=== PATIENT | male | born 1980 | race Caucasian/White ===

== ENCOUNTER 2022-12-16 16:23 | Emergency (ER) | payer OTHER ==
[~2022-12-16] VITALS: Ht 175.2 cm; Wt 104.3 kg
[2022-12-16] MEDS ORDERED: MEDROL DOSEPAK4 MG PO (18:39)
== END 2022-12-16 19:06 | disposition home or self-care (01) ==
LOC: ED 16:23
DX: T78.49XA Other allergy, initial encounter (principal); F17.200 Nicotine dependence, unspecified, uncomplicated; X58.XXXA Exposure to other specified factors, initial encounter

== ENCOUNTER 2023-06-10 16:36 | Emergency (ER) | payer OTHER ==
[~2023-06-10] VITALS: Ht 175.2 cm; Wt 113.4 kg
[~2023-06-10 16:36] MED LIST: MEDROL DOSEPAK4 MG PO
== END 2023-06-10 19:21 | disposition home or self-care (01) ==
LOC: ED 16:36
DX: S06.0X0A Concussion without loss of consciousness, initial encounter (principal); Z88.8 Allergy status to other drugs, medicaments and biological substances; W17.89XA Other fall from one level to another, initial encounter; Y93.23 Activity, snow (alpine) (downhill) skiing, snowboarding, sledding, tobogganing and snow tubing; Y92.89 Other specified places as the place of occurrence of the external cause; Y99.8 Other external cause status